=== PATIENT | female | born 1985 | race Caucasian/White ===

== ENCOUNTER 2020-12-30 06:57 | Outpatient (CLI) | payer BC, SELFPAY ==
--- NOTE | ~2020-12-30 | CT_ITS ---
EXAMINATION: CTA chest PE protocol EXAM DATE: 12/30/2020 07:30 INDICATION: Chest pain. TECHNIQUE: Spiral CTA of the chest (pulmonary arteries) was performed with 100 cc Omnipaque 350 intr avenous contrast injection. Images were acquired during the pulmonary arterial phase. Coronal maxi mum intensity projection 3D-reconstructions were created by the technologist on dedicated workstation . Axial, coronal and sagittal reformatted images were reviewed. The dose-length product (DLP) for t his examination was 336.23 mGy-cm. The exposure was tailored according to patient size (auto mA exp osure control), and iterative reconstruction (ASIR) was used as additional dose reduction technique. There is no prior study for comparison. FINDINGS: Pulmonary arteries are well opacified and without intraluminal filling defects. No thora cic aortic dissection. The lungs are clear. There are no pleural or pericardial effusions. Trach eobronchial tree is patent. There is no mediastinal, hilar or axillary lymphadenopathy. There is no pneumothorax. Heart normal in size. No evidence of coronary arterial calcification. There is hepatic steatosis. There is thoracic spondylosis without osteoblastic or osteolytic lesions identifi ed. IMPRESSION: 1. No acute cardiopulmonary findings. 2. Hepatic steatosis. Reviewed, dictated and finalized at location A. [facility]
== END 2020-12-30 06:58 | disposition home or self-care (01) ==
PROVIDERS: PCP Physician Assistant; Visit Provider Physician Assistant
DX: R07.9 Chest pain, unspecified (principal); K76.0 Fatty (change of) liver, not elsewhere classified
CPT/HCPCS: 71275; Q9967

== ENCOUNTER → 2021-01-19 01:07 | Outpatient (CLI) | payer BC, SELFPAY ==
[2021-01-19 20:23] LABS: SARS-CoV-2 RNA PCR Negative
== END ==
PROVIDERS: PCP Physician Assistant; Visit Provider Student in an Organized Health Care Education/Training Program
DX: Z01.812 Encounter for preprocedural laboratory examination (principal); Z20.822 Contact with and (suspected) exposure to COVID-19
CPT/HCPCS: C9803; U0003; U0005

== ENCOUNTER 2021-01-22 01:51 | Day surgery (SDC) | payer BC, SELFPAY ==
[2021-01-14 11:27] VITALS: BMI 34.2
--- NOTE | 2021-01-22 07:27 | PM.IMHP ---
H&P: HPI History of Present Illness Date/Time: 01/22/21 07:27 35-year-old who presents for hysteroscopy, D&C, endometrial ablation. patient complained of heavier menstrual bleeding for several years. Patient also reports painful cramping with her menses. Patient has also dealt with iron deficiency anemia requiring iron supplementation. Patient has tried a Mirena IUD in the past without resolution of her bleeding. patient has had a prior tubal ligation for contraception. Chief Complaint: Abnormal uterine bleeding, dysmenorrhea Review of Systems Cardiovascular: Cardiovascular: Denies chest pain, Denies leg edema, Denies palpitations, Denies dyspnea and Denies dyspnea on exertion Respiratory: Respiratory: Denies cough, Denies dyspnea and Denies dyspnea on exertion Gastrointestinal: Gastrointestinal: Denies abdominal pain, Denies constipation, Denies diarrhea, Denies nausea and Denies vomiting Genitourinary: Genitourinary: Denies hematuria, Denies urinary frequency, Denies dysuria, Denies pelvic pain, Denies urinary incontinence and Denies vaginal discharge Neurologic: Reports system reviewed and no additional complaints, except as documented Psychiatric: Psychiatric: Reports no additional psychiatric complaints Endocrine: Endocrine: Denies palpitations PMFSH Social History Social History Years smoked: 5 Smoking status: Former smoker Smoking end date: 10/31/08 Alcohol intake: current Drinks per week: 10 Substance use: current Substance use type: marijuana Other substance usage details: OCCASSIONAL Last use: 10/24/20 Living arrangements: with family Spiritual care concerns: No Meds Home Medications and Allergies Home Medications Medication Instructions Recorded Confirmed Type Juice Plus 4 tablet PO DAILY 01/14/21 01/14/21 History calcium 600 mg PO DAILY 01/14/21 01/14/21 History cholecalciferol (vitamin D3) 25 mcg PO DAILY 01/14/21 01/14/21 History [Vitamin D3] fluoxetine 10 mg PO DAILY 01/14/21 01/14/21 History iron 2 tablet PO DAILY 01/14/21 01/14/21 History magnesium 200 mg PO DAILY 01/14/21 01/14/21 History milk thistle 350 mg PO DAILY 01/14/21 01/14/21 History potassium 50 mg PO DAILY 01/14/21 01/14/21 History vitamin K2 60 mcg PO DAILY 01/14/21 01/14/21 History zinc 1 tablet PO DAILY 01/14/21 01/14/21 History Allergies Allergy/AdvReac Type Severity Reaction Status Date / Time promethazine Allergy Severe Hives Verified 01/14/21 11:24 Exam Const: General: no acute distress Eyes: EOM: EOMs intact bilaterally Neck: Neck: supple Thyroid: thyroid normal Chest: Breast/axilla inspection: normal inspection of the breasts Breast/axilla palpation: normal palpation of the breasts, normal palpation of the axillae and no axillary lymphadenopathy Resp: Effort & Inspection: normal respiratory effort Auscultation: clear to auscultation bilaterally Cardio: Rate: regular rate Rhythm: regular rhythm GI: Inspection: non-distended GI Palp: Yes Soft to palpation, No Tenderness to palpation present (GI) and No Guarding due to palpation present (GI) Auscultation: normal bowel sounds : General: No bladder normal to palpation External Female Exam: normal external appearance Speculum Exam - Vagina: normal vaginal discharge and No vaginal bleeding Speculum Exam - Cervix: nontender Bimanual exam- vagina & uterus: No bladder normal to palpation and No Cervical tenderness present OB/external & speculum: No vaginal bleeding Skin: General skin exam: normal color and no rashes or lesions noted Neuro: Cognition (Neuro): normal cognition Speech: normal speech Extrem: General: normal to inspection and no edema Psych: Mental Status: mental status grossly normal Affect: normal affect Assessment and Plan Assessment and plan (1) Abnormal uterine bleeding (AUB): Code(s): N93.9 - Abnormal uterine and vaginal bleeding, unspecified Status: Acute Assessment and Pl
--- NOTE | 2021-01-22 07:33 | WPDHPUPDATE1 ---
History and Physical Update Update Date/Time: 01/22/21 07:33 History and Physical has been reviewed, including an updated exam of the patient. There are NO changes in the patient's condition. Risks, benefits, and alternatives have been discussed and questions answered. Patient agrees to proceed with procedure.
[2021-01-22 10:30] VITALS: BP 134/87; PULSE 101; RESP 20; TEMP 36.1; O2SAT 100
[2021-01-22] MEDS: LACTATED RINGERS 1,000 ML 30 ML IV CONT ×2 (10:37→14:04)
[2021-01-22 10:46] LABS: Hematocrit 41.9 % (37.0-47.0); Hemoglobin 14.2 g/dL (12.0-15.0)
[2021-01-22] MEDS: ACETAMINOPHEN 500 MG TABLET 1000 MG PO (10:46)
--- NOTE | 2021-01-22 11:48 | WPDANESEPPF ---
Anes - Initial Pre Proc Eval Procedure: Operation Date: 01/22/21 12:00 Proposed Procedures p Hysteroscopy, Dilation and Curettage with Awa Ablation - Dick Duong MD Date/Time: 01/22/21 11:48 Surgeon: Dick Duong MD Pre Op Diagnosis: abnormal uterine bleeding, dysmenorrhea Patient Data Age: 35 Gender: F Height: 4 ft 11 in Weight: 77 kg Allergies Allergy/AdvReac Type Severity Reaction Status Date / Time promethazine Allergy Severe Hives Verified 01/22/21 10:52 Home Medications Medication Instructions Recorded Confirmed Type Juice Plus 4 tablet PO DAILY 01/14/21 01/22/21 History calcium 600 mg PO DAILY 01/14/21 01/22/21 History cholecalciferol (vitamin D3) 25 mcg PO DAILY 01/14/21 01/22/21 History [Vitamin D3] fluoxetine 10 mg PO DAILY 01/14/21 01/22/21 History iron 2 tablet PO DAILY 01/14/21 01/22/21 History magnesium 200 mg PO DAILY 01/14/21 01/22/21 History milk thistle 350 mg PO DAILY 01/14/21 01/22/21 History potassium 50 mg PO DAILY 01/14/21 01/22/21 History vitamin K2 60 mcg PO DAILY 01/14/21 01/22/21 History zinc 1 tablet PO DAILY 01/14/21 01/22/21 History Laboratory Tests 01/22/21 10:28 Hgb 14.2 g/dL g/dL (12.0-15.0) Hct 41.9 % % (37.0-47.0) Patient hx anesthesia problems: none Family hx anesthesia problems: none PMFSH Past Medical History Medical History (Updated 01/22/21 @ 11:44 by Wesely Loyd MD) Anemia Anxiety Depression Social History Social History Years smoked: 5 Smoking status: Former smoker Smoking end date: 10/31/08 Alcohol intake: current Drinks per week: 10 Substance use: current Substance use type: marijuana Other substance usage details: OCCASSIONAL Last use: 10/24/20 Living arrangements: with family Spiritual care concerns: No Anes - Eval Final PreProcedure Day of Procedure 01/22/21 11:48 Patient weight: overweight Heart: regular rate and rhythm Lungs: clear to auscultation Airway: Mallampati scale class II Neurological: alert and oriented Last oral intake: >/= 8 hours ASA classification: II Emergent: no Anesthetic plan: proceed Anesthesia type and monitoring: general GIVS and standard monitoring Informed Consent: The patient's anesthetic plan and its attendant risks and benefits were discussed with the patient/family/POA. Questions were solicited and answers provided to the satisfaction of the patient/family/POA.
[2021-01-22] MEDS: LIDOCAINE HCL 1% LOCAL INJ 10 ML VIAL INFILTRATE (12:45)
[2021-01-22] MEDS: KETOROLAC 30 MG/ML VIAL (*BKC) IV PUSH (12:56)
--- NOTE | 2021-01-22 13:03 | SUR.OPER ---
600ml ns in, 600ml ns out. aware
--- NOTE | 2021-01-22 13:05 | PM.PROC ---
Procedure Note - Detailed Date of procedure: 01/22/21 Pre-op diagnosis: abnormal uterine bleeding, dysmenorrhea Post-op diagnosis: same Procedure performed: Paracervical block Hysteroscopy D&C endometrial ablation Description of procedure: The risks, benefits, indications and alternatives were reviewed with the patient and informed consent was obtained. The patient was taken to the operating room and placed under general anesthesia without incident. A vaginal exam was performed and the uterus was noted to be anteverted. The patient was placed in dorsolithotomy position, prepped and draped in the usual sterile fashion. Sterile speculum was placed anteriorly and posteriorly in the vagina, and the cervix was grasped with a tenaculum. Paracervical block was performed. The cervix was dilated and the hysteroscope was introduced. The cervical canal was visualized and the hysteroscope was passed into the uterine cavity without incident. The endometrial lining was visualized. Both ostia of the fallopian tubes were visualized and appear to be grossly normal. The hysteroscope was removed, and the cervix was further dilated to allow for passage of the sharp curette. The sharp curette was advanced to the fundus and endometrial curettage was performed, with the curettage sampling being preserved and sent for pathology. The uterus sounded to 7 cm total, with the cervical length measured as 2 cm, with a difference of 5 cm for the uterine cavity. The uterine depth was set on the awa device. The device was introduced into the uterine cavity and deployed. Cavity assessment was passed on the machine. The ablation process itself took 120 seconds. The Awa device was removed and the hysteroscope was reintroduced, visualizing the ablation of the endometrium in total. There was minimal bleeding noted and the tenaculum clamp was removed with good hemostasis noted. Instrument, sharp, and sponge counts were correct. The patient tolerated the procedure well. The patient was taken to the recovery area in stable condition. Anesthesia: GLMA Surgeon: Dick Duong MD Estimated blood loss (mL): 25 Urine output (mL): 100 Drains: No Packing: No Pathology: yes (endometrial curettings) Complications: No immediate complications Condition: stable Disposition: PACU
[2021-01-22 13:15] VITALS: BP 124/75; PULSE 85; RESP 12; O2SAT 98
[2021-01-22 13:40] VITALS: BP 139/91; PULSE 75; RESP 14
[2021-01-22] MEDS: oxyCODONE HCL (*CRX) 5 MG TAB IR PO (13:59)
[2021-01-22 14:10] VITALS: BP 136/95; PULSE 72; RESP 14; O2SAT 98
[2021-01-22 14:30] VITALS: BP 140/100; PULSE 77; RESP 14
--- NOTE | 2021-01-22 15:22 | SUR.PHASEII ---
1435 25mcg fetanyl given in op recovery, another dose of 25mcg was given at 1438.
== END 2021-01-22 15:05 | disposition home or self-care (01) ==
PROVIDERS: PCP Physician Assistant; Visit Provider Student in an Organized Health Care Education/Training Program
PROC: 0U5B8ZZ Destruction of Endometrium, Via Natural or Artificial Opening Endoscopic (ICD-10-PCS; CPT 58563; principal; 2021-01-22 12:00)
DX: N93.9 Abnormal uterine and vaginal bleeding, unspecified (principal); N94.6 Dysmenorrhea, unspecified; D64.9 Anemia, unspecified; F41.8 Other specified anxiety disorders; Z87.891 Personal history of nicotine dependence; F12.90 Cannabis use, unspecified, uncomplicated
CPT/HCPCS: 58563; 36415; 85014; 85018; 88305; A9270; J1100; J1885; J2250; J2405; J2704; J3010; J7030; J7120

== ENCOUNTER 2022-02-04 10:21 | Emergency (ER) | payer BC, SELFPAY ==
[2022-02-04 10:27] VITALS: BP 127/85; PULSE 75; RESP 16; TEMP 36.2; O2SAT 100
--- NOTE | 2022-02-04 10:38 | ED.URI ---
HPI - URI/Sore Throat General Chief Complaint: Upper Respiratory Infection Stated Complaint: Sinus pain Time Seen by Provider: 02/04/22 10:38 Source: patient, RN notes reviewed and old records reviewed Mode of arrival: ambulatory Limitations: no limitations History of Present Illness HPI Narrative: 36 year old female who presents to [facility] with complaints of 15 days total of sinus pain pressure, nasal drainage, postnasal drainage, cough with expectoration of yellow mucus. forehead pain and facial pain with bilateral ear pressure and popping. Patient states she has been taking NyQuil and Sudafed for her symptoms with no resolution. Patient states cough bothersome and is productive denies any wheezing or any acute shortness of breath. Patient has had Covid in December 2019 and has been vaccinated for Covid and also has had flu shot this season. Patient denies any acute fevers chills or sweats, denies any body aches. Related Data Home Medications Medication Instructions Recorded Confirmed Juice Plus 4 tablet PO DAILY 01/14/21 02/04/22 calcium 600 mg PO DAILY 01/14/21 02/04/22 cholecalciferol (vitamin D3) 25 mcg PO DAILY 01/14/21 02/04/22 [Vitamin D3] iron 2 tablet PO DAILY 01/14/21 02/04/22 magnesium 200 mg PO DAILY 01/14/21 02/04/22 milk thistle 350 mg PO DAILY 01/14/21 02/04/22 potassium 50 mg PO DAILY 01/14/21 02/04/22 vitamin K2 60 mcg PO DAILY 01/14/21 02/04/22 zinc 1 tablet PO DAILY 01/14/21 02/04/22 Allergies Allergy/AdvReac Type Severity Reaction Status Date / Time promethazine Allergy Severe Hives Verified 02/04/22 10:27 Review of Systems Review of Systems: CONSTITUTIONAL: Denies fever, chills, or sweats. EYES: Denies visual changes, redness, or discharge. ENT:positive rhinorrhea, congestion,no sore throat, positive for pressure and popping of ears CARDIOVASCULAR: Denies chest pain, palpitations, or edema. RESPIRATORY: Positive for cough denies dyspnea. GASTROINTESTINAL: Denies abdominal pain, nausea, vomiting, or diarrhea. GENITOURINARY: Denies dysuria or hematuria. SKIN: Denies rash or itching. MUSCULOSKELETAL: Denies back pain, joint pain, or myalgia. NEUROLOGIC: Positive for frontal headache,no numbness, or weakness. PSYCHIATRIC: Positive for history of anxiety or depression. All systems reviewed & are unremarkable except as noted in HPI and below PMFSH Past Medical History Medical History (Updated 02/04/22 @ 10:52 by Sonja Gao NP) Anemia Anxiety Depression Surgical History Surgical History (Updated 02/04/22 @ 10:42 by Sonja Gao NP) H/O tubal ligation Social History Social History (Updated 02/04/22 @ 11:31 by Sonja Gao NP) Smoking packs per day: 0.25 Smoking cigarettes per day: 5.0 Smoking status: Current every day smoker Tobacco type: cigarettes Alcohol intake: current Drinks per week: 10 Substance use type: does not use Living arrangements: with family Gender identity (if verbalized by the patient): Female Spiritual care concerns: No Comments At time of signature, agree with nursing past medical, surgical, social and family history. There is no relevant family history pertinent to the presenting complaint Exam Narrative: GENERAL: Well-appearing, well-nourished, and in no acute distress. HEAD: Normocephalic, atraumatic. EYES: PERRLA and EOMI. ENT: Nares swollen with turbinated red, yellow tinged rhinorrhea no epistaxis. Mucous membranes moist.TM's normal with good light reflex, throat mildly red with no lesions exudates or tonsil swelling, some post nasal drainage, facial pressure and frontal headache discomfort NECK: Supple.no lymphadenopathy CHEST: Clear to auscultation. No respiratory distress.productive frequent cough, SAO2 100% on room air HEART: Regular rate and rhythm. No murmur heard. Normal peripheral pulses. ABDOMEN: Soft, nontender, nondistended, normal active bowel sounds. EXTREMITIES: Normal range of motion. No edema. SKIN:
== END 2022-02-04 11:01 | disposition home or self-care (01) ==
PROVIDERS: Emergency Provider Registered Nurse
DX: R05.9 Cough, unspecified (principal); J01.40 Acute pansinusitis, unspecified; Z86.16 Personal history of COVID-19; F17.210 Nicotine dependence, cigarettes, uncomplicated
CPT/HCPCS: 99213; G0463

== ENCOUNTER 2024-07-15 20:19 | Emergency (ER) | payer BC, SELFPAY ==
[2024-07-15 20:20] VITALS: BP 154/101; PULSE 113; RESP 20; TEMP 36.6; O2SAT 99
--- NOTE | 2024-07-15 20:27 | ED.WOUNDLAC ---
HPI - Wound/Laceration General Chief Complaint: Wound/Laceration Stated Complaint: need tetanus shot stepped on nail Time Seen by Provider: 07/15/24 20:29 Source: patient Mode of arrival: ambulatory Limitations: no limitations History of Present Illness HPI narrative: this is a 38-year-old female that presents to the emergency department after a puncture wound to the left foot. Reports she stepped on a nail. She was able to remove her herself. She is not up-to-date on tetanus vaccination. Reports bleeding and pain to the area. Denies numbness. Related Data Home Medications Medication Instructions Recorded Confirmed Juice Plus 4 tablet PO DAILY 01/14/21 02/04/22 calcium 600 mg capsule 600 mg PO DAILY 01/14/21 02/04/22 cholecalciferol (vitamin D3) 25 25 mcg PO DAILY 01/14/21 02/04/22 mcg (1,000 unit) capsule (Vitamin D3) iron 50 mg iron tablet 2 tablet PO DAILY 01/14/21 02/04/22 magnesium 200 mg tablet 200 mg PO DAILY 01/14/21 02/04/22 milk thistle 175 mg tablet 350 mg PO DAILY 01/14/21 02/04/22 potassium 75 mg tablet 50 mg PO DAILY 01/14/21 02/04/22 vitamin K2 100 mcg capsule 60 mcg PO DAILY 01/14/21 02/04/22 zinc 1 tablet PO DAILY 01/14/21 02/04/22 Allergies Allergy/AdvReac Type Severity Reaction Status Date / Time promethazine Allergy Severe Hives Verified 07/15/24 20:24 Review of Systems Review of Systems: CONSTITUTIONAL: Denies fever SKIN: Reports puncture wound All systems reviewed & are unremarkable except as noted in HPI and below PMFSH Past Medical History Medical History (Updated 07/15/24 @ 20:28 by Jennifer Elizabeth PA-C) Anemia Anxiety Depression Surgical History Surgical History (Updated 02/04/22 @ 10:42 by Sonja Gao NP) H/O tubal ligation Social History Social History (Updated 02/04/22 @ 11:31 by Sonja Gao NP) Smoking packs per day: 0.25 Smoking cigarettes per day: 5.0 Smoking status: Current every day smoker Tobacco type: cigarettes Alcohol intake: current Drinks per week: 10 Substance use type: does not use Living arrangements: with family Gender identity (if verbalized by the patient): Female Spiritual care concerns: No Exam Narrative: GENERAL: Well-appearing, well-nourished, and in no acute distress. HEAD: Normocephalic, atraumatic. EYES: EOMI. EXTREMITIES: Normal range of motion. No edema. Left foot plantar surface with small puncture wound. No active bleeding SKIN: Warm, dry, no rash. NEURO: No focal deficits. Alert and oriented x3. PSYCH: Normal mood and affect Course Course Emergency Course: Patient agrees with plan of care Vital Signs Vital signs: Vital Signs Temperature 97.8 F 07/15/24 20:20 Pulse Rate 113 H 07/15/24 20:20 Respiratory Rate 20 07/15/24 20:20 Blood Pressure 154/101 H 07/15/24 20:20 Pulse Oximetry 99 07/15/24 20:20 Oxygen Delivery Room Air 07/15/24 20:20 Temperature 97.8 F 07/15/24 20:20 Pulse Rate 113 H 07/15/24 20:20 Respiratory Rate 20 07/15/24 20:20 Blood Pressure 154/101 H 07/15/24 20:20 Pulse Oximetry 99 07/15/24 20:20 Oxygen Delivery Room Air 07/15/24 20:20 MDM - Wound/Laceration MDM Narrative Medical decision making narrative: Patient presents to the emergency department after puncture wound to the left foot. Her wound was irrigated and covered with antibiotic ointment and a bandage. She was updated on tetanus. Will be started on prophylactic antibiotics. She is to follow-up with PCP. She was given warnings to return to the ER Differential Diagnosis Differential diagnosis: Likely laceration, abrasion and other (puncture wound) Critical Care Time Critical Care Time Critical Care Time: No Discharge Plan Discharge Clinical Impression: Puncture wound Patient Disposition: Home, Self-Care Condition: Stable Instructions: Antibiotic Form, Puncture Wound (ED) Additional Instructions: Return to the emergency
[2024-07-15] MEDS: CEPHALEXIN 500 MG CAPSULE PO (20:48)
[2024-07-15] MEDS: TETANUS,DIPHTHERIA,AC PERTUSSIS ADULT (0.5 ML) BOOSTRIX IM (20:48)
== END 2024-07-15 20:56 | disposition home or self-care (01) ==
LOC: ANHED 20:41
PROVIDERS: Emergency Provider Physician Assistant; PCP Physician Assistant
DX: S91.332A Puncture wound without foreign body, left foot, initial encounter (principal); W45.0XXA Nail entering through skin, initial encounter; D64.9 Anemia, unspecified; F41.9 Anxiety disorder, unspecified; F32.A Depression, unspecified; F17.210 Nicotine dependence, cigarettes, uncomplicated; Z23 Encounter for immunization
CPT/HCPCS: 90471; 90715; 99283; A9270